=== PATIENT | female | born 1985 | race Caucasian/White ===

== ENCOUNTER 2016-06-27 22:23 | Emergency (ER) | payer MEDICAID ==
[~2016-06-27] VITALS: Ht 162.6 cm; Wt 98.9 kg
[~2016-06-27 22:23] MED LIST: AMOXICOT500 MG PO; BUPROPION HCL300 MG PO; ERRIN0.35 MG PO; GLYCOLAX17 GM/DOSE PO; INDERAL10 MG PO; KEFLEX 500MG.500 MG PO; LINZESS145 MCG PO; MONTELUKAST SOD10 MG PO; OMEPRAZOLE20 MG PO; OXCARBAZEPINE300 M2 PO; PRAVACHOL40 MG PO; QUETIAPINE FUM300 M1 PO; VOLTAREN 25MG T25 MG PO
--- NOTE | 2016-06-27 23:06 | Emergency Room Report ---
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 N Clinical Suspician of Infection? N Mental Status: 1 - Regular (Normal Baseline) Sepsis Risk:Low Sepsis Risk Have you (or family members/close friends) recently traveled outside the [place]? N If Yes, where/when: Have you had exposure to infectious disease within the past month? N TB? Other? Specify: Source patient, RN notes reviewed, family, old records Exam Limitations no limitations Comment menses with clots with some craampy pain Cardiac Chest Pain Chest pain indicative of cardiac No Timing/Duration this evening Severity moderate ALLERGIES Coded Allergies: No Known Allergies (05/15/16) Home Medications Reported Medications BUPROPION HCL (Bupropion XL) 300 MG PO DAILY #30 Propranolol Hcl (Inderal) 10 MG PO TID #90 Quetiapine Fumarate 600 MG PO QHS #60 Oxcarbazepine 300 MG PO BID #60 Omeprazole (Omeprazole 20MG) 20 MG PO BID #60 Norethindrone (Yesi) 0.35 MG PO DAILY #28 Pravastatin Sodium (Pravachol) 40 MG PO QHS #30 Linaclotide (Linzess 145MCG) 145 MCG PO DAILY #30 Montelukast Sodium 10 MG PO QHS #30 History Medical History General CAD? No Angina: No [place]: No Hypertension? Yes Hyperlipidemia? No CHF? No DVT? No PE? No COPD? No Asthma? No Anemia? No GERD? No Gastric ulcers? No GI Bleed? No Hernia? No Thyroid Problems? No Hypothyroidism? No CVA? No Seizures? No Diabetes? No Renal Insuffiency? No End Stage Renal Disease? No UTI? No Stones? No BPH? No GB Disease: No Nephritic Syndrome? No Asplenia? No Hepatitis? No Sickle Cell Disease? No Arthritis? No Migraines? No Cataracts? No Glaucoma? No MRSA? No HIV? No TB? No Anxiety? Yes Depression? Yes Cancer? No More? 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 Respiratory denies cough, denies shortness of breath Cardiovascular denies chest pain, denies palpitations, denies syncope Gastrointestinal denies abdominal pain, denies diarrhea, denies vomiting Genitourinary see HPI, abnormal vaginal bleeding. denies: normal menstrual period. Musculoskeletal denies back pain, denies joint pain, denies joint swelling, denies neck pain Skin denies rash Psychiatric/Neurological denies headache, denies seizure Physical Exam Vital Signs Vital Signs Date Time Temp Pulse Resp B/P Pulse O2 O2 Flow FiO2 Ox Delivery Rate 06/27 2233 98.8 125 16 143/84 97 - WBC >12,000 or <4,000 or 10% bands? 2 or more SIRS Criteria Met? B/P:143/84 MAP:103 Creatinine >2.0? UA output<0.5ml/kg/hr for 2 hrs? Platelet count >100,000? Lactate >2.0mmol/1? INR >1.2 or PTT > than 60 sec? Evidence of Organ Dysfunction? Provider documented clinical suspician of infection? N Sepsis Criteria Count: 1 Sepsis Risk: Low Sepsis Risk General Appearance no apparent distress Eye Exam - bilateral eye PERRL, bilateral eye EOMI Ear, Nose, Throat normal ENT inspection Neck supple Respiratory Status No: respiratory distress. Cardiovascular regular rate/rhythm Peripheral Pulses Pulses normal Yes Gastrointestinal soft Extremities normal inspection Strength 4 Upper Ext (L), 4 Upper Ext (R), 4 Lower Ext (L), 4 Lower Ext (R) Neurologic alert, pharmacy stock clerk II-XII nml as tested Mental status normal mood/affect Skin intact Medical Decision Making LABS/Meds/Orders Pt receiving controlled substance in ED? No Results/Orders Laboratory Tests 06/27/16 2340: Urine Color RED, Urine Appearance Turbid, Urine pH 6.0, Ur Specific [place] >= 1.030, Urine Protein 2+ H, Urine Ketones NEGATIVE, Urine Blood 3+ H, Urine Nitrate NEGATIVE, Urine Bilirubin NEGATIVE, Urine Urobilinogen 0.2, Ur Leukocyte Esterase TRACE H, Urine RBC TNTC, Urine WBC 3-5, Urine Bacteria 1+, Urine Glucose NEGATIVE Orders Procedure Date/time Status URINALYSIS/COMPLETE 06/27 2238 Complete URINE 06/27 2238 Complete Departure Departure Time of Disposition 002 Disposition DC Home or Self Care(routine) Clinical Impression Primary Impression: DUB (dysfunctional uterine bleeding) Condition STABLE Referrals Annette MENCHACA,Americo Lainez (Family) Patient Instructions DI for Dysmenorrhea Additional Instructions advil/tyenol and see pcp today as planned Discharge Counseling Counseled pt/family regarding diagnosis, test results, follow up needs ED Critical Care Critical Care No at 0025
--- NOTE | 2016-06-27 23:06 | Emergency Room Report ---
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 N Clinical Suspician of Infection? N Mental Status: 1 - Regular (Normal Baseline) Sepsis Risk:Low Sepsis Risk Have you (or family members/close friends) recently traveled outside the [place]? N If Yes, where/when: Have you had exposure to infectious disease within the past month? N TB? Other? Specify: Source patient, RN notes reviewed, family, old records Exam Limitations no limitations Comment menses with clots with some craampy pain Cardiac Chest Pain Chest pain indicative of cardiac No Timing/Duration this evening Severity moderate ALLERGIES Coded Allergies: No Known Allergies (05/15/16) Home Medications Reported Medications BUPROPION HCL (Bupropion XL) 300 MG PO DAILY #30 Propranolol Hcl (Inderal) 10 MG PO TID #90 Quetiapine Fumarate 600 MG PO QHS #60 Oxcarbazepine 300 MG PO BID #60 Omeprazole (Omeprazole 20MG) 20 MG PO BID #60 Norethindrone (Yesi) 0.35 MG PO DAILY #28 Pravastatin Sodium (Pravachol) 40 MG PO QHS #30 Linaclotide (Linzess 145MCG) 145 MCG PO DAILY #30 Montelukast Sodium 10 MG PO QHS #30 History Medical History General CAD? No Angina: No [place]: No Hypertension? Yes Hyperlipidemia? No CHF? No DVT? No PE? No COPD? No Asthma? No Anemia? No GERD? No Gastric ulcers? No GI Bleed? No Hernia? No Thyroid Problems? No Hypothyroidism? No CVA? No Seizures? No Diabetes? No Renal Insuffiency? No End Stage Renal Disease? No UTI? No Stones? No BPH? No GB Disease: No Nephritic Syndrome? No Asplenia? No Hepatitis? No Sickle Cell Disease? No Arthritis? No Migraines? No Cataracts? No Glaucoma? No MRSA? No HIV? No TB? No Anxiety? Yes Depression? Yes Cancer? No More? 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 Respiratory denies cough, denies shortness of breath Cardiovascular denies chest pain, denies palpitations, denies syncope Gastrointestinal denies abdominal pain, denies diarrhea, denies vomiting Genitourinary see HPI, abnormal vaginal bleeding. denies: normal menstrual period. Musculoskeletal denies back pain, denies joint pain, denies joint swelling, denies neck pain Skin denies rash Psychiatric/Neurological denies headache, denies seizure Physical Exam Vital Signs Vital Signs Date Time Temp Pulse Resp B/P Pulse O2 O2 Flow FiO2 Ox Delivery Rate 06/27 2233 98.8 125 16 143/84 97 - WBC >12,000 or <4,000 or 10% bands? 2 or more SIRS Criteria Met? B/P:143/84 MAP:103 Creatinine >2.0? UA output<0.5ml/kg/hr for 2 hrs? Platelet count >100,000? Lactate >2.0mmol/1? INR >1.2 or PTT > than 60 sec? Evidence of Organ Dysfunction? Provider documented clinical suspician of infection? N Sepsis Criteria Count: 1 Sepsis Risk: Low Sepsis Risk General Appearance no apparent distress Eye Exam - bilateral eye PERRL, bilateral eye EOMI Ear, Nose, Throat normal ENT inspection Neck supple Respiratory Status No: respiratory distress. Cardiovascular regular rate/rhythm Peripheral Pulses Pulses normal Yes Gastrointestinal soft Extremities normal inspection Strength 4 Upper Ext (L), 4 Upper Ext (R), 4 Lower Ext (L), 4 Lower Ext (R) Neurologic alert, dietetic assistant II-XII nml as tested Mental status normal mood/affect Skin intact Medical Decision Making LABS/Meds/Orders Pt receiving controlled substance in ED? No Results/Orders Laboratory Tests 06/27/16 2340: Urine Color RED, Urine Appearance Turbid, Urine pH 6.0, Ur Specific [place] >= 1.030, Urine Protein 2+ H, Urine Ketones NEGATIVE, Urine Blood 3+ H, Urine Nitrate NEGATIVE, Urine Bilirubin NEGATIVE, Urine Urobilinogen 0.2, Ur Leukocyte Esterase TRACE H, Urine RBC TNTC, Urine WBC 3-5, Urine Bacteria 1+, Urine Glucose NEGATIVE Orders Procedure Date/time Status URINALYSIS/COMPLETE 06/27 2238 Complete URINE 06/27 2238 Complete Departure Departure Time of Disposition 002 Disposition DC Home or Self Care(routine) Clinical Impression Primary Impression: DUB (dysfunctional uterine bleeding) Condition STABLE Referrals Annette MENCHACA,Americo Lainez (Family) Patient Instructions DI for Dysmenorrhea Additional Instructions advil/tyenol and see pcp today as planned Discharge Counseling Counseled pt/family regarding diagnosis, test results, follow up needs ED Critical Care Critical Care No at 0025
[2016-06-28 00:06] LABS: URINE BILIRUBIN - DIPSTICK NEGATIVE (NEG); URINE BLOOD 3+ (NEG)
[2016-06-28 00:28] VITALS: BP 132/74
== END 2016-06-28 00:29 | disposition home or self-care (01) ==
LOC: ER 22:23
PROVIDERS: Emergency Medicine
DX: N93.8 Other specified abnormal uterine and vaginal bleeding (principal); N94.6 Dysmenorrhea, unspecified

== ENCOUNTER → 2016-10-01 | Outpatient (CLI) | payer MEDICAID ==
--- NOTE | 2016-10-01 13:15 | RADIOLOGY REPORT PS360 ---
CT SINUS (MAX-FACIAL W/O CONT) CLINICAL INDICATION: CHRONIC SINUSITIS ORDERING PHYSICIAN: HANNAH APODACA PATIENT AGE: 31 years COMPARISON: None TECHNIQUE:Axial, sagittal, and coronal images are generated and reviewed without contrast COMPARISON: None FINDINGS:No air-fluid levels are evident. There is mild mucosal thickening involving the inferior aspect of the right maxillary sinus measuring up to 5 mm. The ostiomeatal complexes are patent. No significant nasal septal deviation. The frontals, ethmoids, and sphenoid sinuses are unremarkable. No mastoid effusion. The orbits are unremarkable. No obvious nasopharyngeal mass. Scattered small nodes are present in the neck. There are minimal osteoarthritic change of the right TMJ. IMPRESSION: 1. No evidence of acute sinusitis. 2. Minimal mucosal thickening right maxillary sinus. 3. Minimal right TMJ arthropathy
== END ==
LOC: RAD 09-27 14:30
DX: J32.9 Chronic sinusitis, unspecified (principal)